=== PATIENT | male | born 1985 | race Caucasian/White ===

== ENCOUNTER 2021-08-23 08:01 | Day surgery (SDC) | payer MEDICAID, SELFPAY ==
[2021-08-23] VITALS (8 sets, daily range): BP systolic 118–143; BP diastolic 80–99; PULSE 65–95; RESP 16–18; TEMP 36.4–36.9; O2SAT 93–99; BMI 24.7
--- NOTE | 2021-08-23 08:25 | EKG12_ITS ---
Test Reason : PREOP Blood Pressure : / mmHG Vent. Rate : 086 BPM Atrial Rate : 086 BPM P-R Int : 148 ms QRS Dur : 080 ms QT Int : 398 ms P-R-T Axes : 061 043 046 degrees QTc Int : 476 ms Sinus bradycardia Borderline Prolonged QT No previous ECGs available Confirmed by DAVIDSON HARRIS, ARNAUD ([id number]), news video editor LYUBOV ROSENBAUM ([id number]) on 09/01/2021 1:07:36 PM Referred By: Willi Lopez Confirmed By:ARNAUD CEDEÑO MD
[2021-08-23] MEDS: Lactated Ringers 1,000 ML 15 ML IV (09:02)
[2021-08-23] MEDS: Epinephrine (1 mg/ml) 1 MG/ML VIAL (10:05)
[2021-08-23] MEDS: Lidocaine 1% /Epi 1:100 (20ml) 20 ML Vial (10:05)
[2021-08-23] MEDS: Ciprofloxacin 0.3% 2.5ml Bottle 1 DRP (11:30)
[2021-08-23] MEDS: Bacitracin 500 UNITS/GM PACKET (11:35)
[2021-08-23] MEDS: HYDROcodone Bitartrate/Apap 5/325 Tablet PO (14:00)
== END 2021-08-23 14:51 | disposition home or self-care (01) ==
LOC: SDC 08:02 → AC 08:20
PROVIDERS: Referring Provider Otolaryngology; Visit Provider Otolaryngology
PROC: (CPT 69631; principal; 2021-08-23 09:05)
DX: H72.2X1 Other marginal perforations of tympanic membrane, right ear (principal); K21.9 Gastro-esophageal reflux disease without esophagitis; F32.A Depression, unspecified; F41.9 Anxiety disorder, unspecified; F17.200 Nicotine dependence, unspecified, uncomplicated; Z79.899 Other long term (current) drug therapy
CPT/HCPCS: 69631; 21235; 00120; 85027; 93005; J7120; J2405